=== PATIENT | male | born 1955 | race Caucasian/White ===

== ENCOUNTER 2017-04-15 19:36 | Emergency (ER) | payer MEDICAID ==
[2017-04-15] MEDS ORDERED: cefTRIAXone 1 GM, Lidocaine 1% 2.1 ML IM ONE ×2 (20:33)
--- NOTE | 2017-04-15 20:34 | EDM.PDOC ---
ED HPI GENERAL MEDICAL PROBLEM - General Chief Complaint: Upper Extremity Injury/Pain Stated Complaint: R ELBOW SWELLING Time Seen by Provider: 04/15/17 20:34 Source of Information: Reports: Patient History Limitations: Reports: No Limitations - History of Present Illness INITIAL COMMENTS - FREE TEXT/NARRATIVE: pt arrived with a history of picking a scab off of the elebow. He had alot of dry crusty skin on the elebow. He Had then noticed some redness and today he had swelling and some streking --red that was just above the elebow. Onset: Today Duration: Day(s): Location: Reports: Upper Extremity, Right Associated Symptoms: Reports: No Other Symptoms - Related Data Allergies Allergy/AdvReac Type Severity Reaction Status Date / Time No Known Allergies Allergy Verified 04/15/17 20:14 Home Meds: Home Meds NK [No Known Home Meds] 04/15/17 [History] Past Medical History - Past Surgical History GI Surgical History: Reports: Hernia, Inguinal Social & Family History - Tobacco Use Smoking Status *Q: Current Every Day Smoker Years of Tobacco use: 35 Packs/Tins Daily: 1 - Caffeine Use Caffeine Use: Reports: Coffee - Alcohol Use Days Per Week of Alcohol Use: 2 Number of Drinks Per Day: 1 Total Drinks Per Week: 2 - Recreational Drug Use Recreational Drug Use: No Review of Systems - Review of Systems Review Of Systems: See Below Constitutional: Reports: No Symptoms Eyes: Reports: No Symptoms Ears: Reports: No Symptoms Nose: Reports: No Symptoms Mouth/Throat: Reports: No Symptoms Respiratory: Reports: No Symptoms Cardiovascular: Reports: No Symptoms GI/Abdominal: Reports: No Symptoms Genitourinary: Reports: No Symptoms Musculoskeletal: Reports: Other (pt arrived with pain in the rt elebow. He has redness and swelling. ) Skin: Reports: Rash, Erythema ED EXAM, GENERAL - Physical Exam Exam: See Below Free Text/Narrative:: pt arrived with pain in the rt elebow. He has definite redness and swelling. Exam Limited By: No Limitations General Appearance: Alert Ears: Normal TMs Nose: Normal Inspection Throat/Mouth: Normal Inspection Head: Atraumatic Neck: Normal Inspection Respiratory/Chest: No Respiratory Distress Cardiovascular: Regular Rate, Rhythm GI/Abdominal: Soft, Non-Tender Extremities: No: Other ( rt elebow is red and swollen. he has not had severe pain in it. He has a small streak going up the arm from the red site. ) Neurological: Alert, Oriented Course - Vital Signs Last Recorded V/S: Last Vital Signs Temp 36.5 C 04/15/17 20:13 Pulse 78 04/15/17 20:13 Resp 16 04/15/17 20:13 BP 189/94 H 04/15/17 20:13 Pulse Ox 96 04/15/17 20:13 - Orders/Labs/Meds Meds: Medications Discontinued Medications Generic Name Dose Route Start Last Admin Trade Name Arelis PRN Reason Stop Dose Admin Ceftriaxone Sodium 1 gm/ 0 gm 04/15/17 20:33 Lidocaine HCl 2.1 ml IM 04/15/17 20:34 ONETIME ONE - Re-Assessments/Exams Free Text/Narrative Re-Assessment/Exam: 04/15/17 20:51 pt was given rocephen 1 gm im. Departure - Departure Time of Disposition: 20:51 Disposition: Home, Self-Care 01 Condition: Fair Clinical Impression: Cellulitis - Discharge Information Referrals: PCP,None [Primary Care Provider] - Forms: ED Department Discharge Care Plan Goals: soak the elebow in waRM WATER, -- 3 TIMES DAILY, AUGMENTIN 875 BID, APPT WITH dR Patel IN 4-5 DAYS, RTC TO ER IF GETTING WORSE. TYLENOL AND MOTRIN FOR PAIN.
== END 2017-04-15 21:25 | disposition home or self-care (01) ==
LOC: JP.ED 19:36
DX: L03.113 Cellulitis of right upper limb (principal); F17.210 Nicotine dependence, cigarettes, uncomplicated
CPT/HCPCS: 96372; 99283; J0696